=== PATIENT | male | born 1990 | race Caucasian/White ===

== ENCOUNTER 2019-05-20 16:53 | Emergency (ER) | payer OTHER ==
[~2019-05-20] VITALS: Ht 193 cm; Wt 122.5 kg
[2019-05-20] MEDS ORDERED: Voltaren100 GM TOP (17:29)
[2019-05-20] MEDS ORDERED: CYCL10 PO (17:29)
[2019-05-20] MEDS ORDERED: Percocet 5-3251 EACH PO (17:29)
== END 2019-05-20 17:45 | disposition home or self-care (01) ==
LOC: ER 16:53
DX: M54.5 Low back pain (principal)
CPT/HCPCS: 96372; 99283-25; A9270-GY; J1170

== ENCOUNTER → 2021-12-23 | Outpatient (CLI) | payer OTHER ==
[~2021-12-23] MED LIST: CYCL10 PO; Percocet 5-3251 EACH PO; Voltaren100 GM TOP
== END | disposition home or self-care (01) ==
LOC: LAB SHORT 11:15 → LAB 11:15
DX: J02.9 Acute pharyngitis, unspecified (principal)
CPT/HCPCS: 87081